=== PATIENT | female | born 1955 | race Asian ===

== ENCOUNTER 2018-08-14 10:49 | Day surgery (SDC) | payer MEDICARE, OTHER ==
[2018-08-14] MEDS ORDERED: FENTAnyl 50 MCG/ML VIAL (14:09)
[2018-08-14] MEDS ORDERED: MIDAZOLAM 1 MG/ML 2 ML INJ ×2 (14:09)
== END 2018-08-14 15:27 | disposition home or self-care (01) ==
LOC: GIL 10:49
DX: Z12.11 Encounter for screening for malignant neoplasm of colon (principal)
CPT/HCPCS: G0121